=== PATIENT | male | born 2000 | race African-American/Black ===

== ENCOUNTER 2021-07-08 18:06 | Emergency (ER) | payer SELFPAY ==
[2021-07-08 18:30] VITALS: BP 129/102; PULSE 81; RESP 16; TEMP 37.1; O2SAT 100
--- NOTE | 2021-07-08 20:53 | ED.GENADULT ---
HPI - General Adult General Chief complaint: Urogenital-Male Stated complaint: penile discharge Time Seen by Provider: 07/08/21 20:46 Source: patient Mode of arrival: ambulatory Limitations: no limitations History of Present Illness HPI narrative: Patient presents for evaluation of urethral discharge for the last 1 to 2 days. He states that it is a milky white color and he has associated dysuria. He denies any testicular pain or swelling. He denies any fever, chills, nausea, vomiting, abdominal pain, sore throat, rectal pain. He is currently in a relationship with a male with whom he is sexually active. He believes he contracted an STD prior to the time that he was sexually active with his current partner. Patient does engage in insertive and receptive anal intercourse as well as oral intercourse. Review of Systems Review of Systems: CONSTITUTIONAL: Denies fever, chills, or sweats. EYES: Denies visual changes, redness, or discharge. ENT: Denies rhinorrhea, congestion, sore throat, or otalgia. CARDIOVASCULAR: Denies chest pain, palpitations, or edema. RESPIRATORY: Denies cough or dyspnea. GASTROINTESTINAL: Denies abdominal pain, nausea, vomiting, or diarrhea. GENITOURINARY: Reports urethral discharge and dysuria. Denies testicular pain and swelling. SKIN: Denies rash or itching. MUSCULOSKELETAL: Denies back pain, joint pain, or myalgia. NEUROLOGIC: Denies headache, numbness, dizziness, or weakness. PSYCHIATRIC: Denies anxiety or depression. [facility] Past Medical History Medical History (Updated 07/08/21 @ 20:57 by Aldo Abreu, JIM, ) No pertinent past medical history Surgical History Surgical History No pertinent past surgical history Family History Family History Mother No pertinent past medical history Social History Social History Smoking status: Never smoker Alcohol intake: current Alcohol use details: Socially Substance use: never Gender identity (if verbalized by the patient): Male Sexual Orientation (if Verbalized by the Patient): Lesbian, Stein, or Homosexual Spiritual care concerns: No Exam Narrative: GENERAL: Well-appearing, well-nourished, and in no acute distress. HEAD: Normocephalic, atraumatic. EYES: PERRLA and EOMI. ENT: Nares clear, no rhinorrhea or epistaxis. Mucous membranes moist. Oropharynx without tonsillar hypertrophy exudate or other lesions. Bilateral TMs pearly montes nonbulging NECK: Supple. No adenopathy or masses. No carotid bruits or JVD CHEST: Clear to auscultation. No respiratory distress. No wheezes rales or rhonchi HEART: Regular rate and rhythm. No murmur heard. Normal peripheral pulses. ABDOMEN: Soft, nontender, nondistended, normal active bowel sounds. GENITAL: No external genital lesions. No inguinal lymphadenopathy. No scrotal swelling. No testicular masses or tenderness. There is a milky white discharge noted at urethral orifice. EXTREMITIES: Normal range of motion. No edema. SKIN: Warm, dry, no rash. NEURO: No focal deficits. Alert and oriented x3. PSYCH: Normal mood and affect. Course Course Emergency Course: This is a 20-year-old male who presented with complaints of urethral discharge and dysuria. On physical exam he does have milky white drainage noted. Patient was treated empirically for gonorrhea and chlamydia. He was advised to have complaints of STD evaluation performed outpatient. He was advised on safer sex practices. He should follow-up outpatient for further evaluation treatment return for worsening symptoms. Patient agreed with plan of care. Vital Signs Vital signs: Vital Signs Temperature 37.1 C 07/08/21 18:30 Pulse Rate 81 07/08/21 18:30 Respiratory Rate 16 07/08/21 18:30 Blood Pressure 129/102 H 07/08/21 18:30 Pulse Oximetry 100 07/08
[2021-07-08 21:08] VITALS: BP 161/88; PULSE 74; RESP 20; O2SAT 100
[2021-07-08] MEDS: cefTRIAXone 1 GM VIAL 0.5 GM IM (21:10)
[2021-07-08] MEDS: AZITHROMYCIN 250 MG TABLET 1000 MG PO (21:10)
[2021-07-08 21:51] LABS: Add Urine Microscopic? YES; Appearance Urine Clear (Clear); Bacteria Urine Trace /hpf; Bilirubin Urine Negative (Negative); Blood Urine Negative (Negative); Budding Yeast Urine Present /hpf; Color Urine Yellow (Yellow); Glucose Urine UA Negative (Negative); Ketones Urine Negative (Negative); Leukocyte Esterase Ur 3+ LEU/UL (Negative); Mucus Urine Rare /lpf; Nitrate Urine Negative (Negative); Protein Urine Negative (Negative); Specific Grav Ur 1.012 (1.001-1.035); Urobilinogen Urine Negative mg/dL (<2.0); WBC Urine >75 /hpf
== END 2021-07-08 21:45 | disposition home or self-care (01) ==
LOC: ANHED 21:13
PROVIDERS: Emergency Provider Nurse Practitioner
DX: Z20.2 Contact with and (suspected) exposure to infections with a predominantly sexual mode of transmission (principal)
CPT/HCPCS: 81001; 87086; 87491; 87591; 87661; 96372; 99283; A9270; J0696

== ENCOUNTER 2025-03-21 16:35 | Emergency (ER) | payer OTHER, SELFPAY ==
[2025-03-21 16:46] VITALS: BP 136/90; PULSE 66; RESP 16; TEMP 36.2; O2SAT 99
--- NOTE | 2025-03-21 16:48 | ED.DENTAL ---
HPI - Dental/Oral General Chief complaint: Dental/Oral Stated complaint: tooth pain Source: patient Mode of arrival: ambulatory Limitations: no limitations History of Present Illness HPI Narrative: Patient is a pleasant 24-year-old male presenting with complaint of left lower dental pain. Additional symptoms reported include left-sided facial swelling. Symptoms began approximately 1 week ago, became worse today. No treatment initiated prior to arrival. No additional complaints. Teeth map:  1. TTP Related Data Home Medications ?Medication ?Instructions ?Recorded ?Confirmed ?Last Taken ?Type bictegravir 50 mg-emtricitabine tablet PO 03/21/25 Unknown History 200 mg-tenofovir alafenam 25 mg tablet (Biktarvy) Allergies Allergy/AdvReac Type Severity Reaction Status Date / Time shellfish derived Allergy Swelling Verified 03/21/25 16:58 Review of Systems Review of Systems: All systems reviewed & are unremarkable except as noted in HPI and below PMFSH Past Medical History Medical History (Updated 03/21/25 @ 16:57 by Alin Huynh, [employer]) No pertinent past medical history Surgical History Surgical History No pertinent past surgical history Family History Family History Mother No pertinent past medical history Social History Social History Smoking status: Never smoker Alcohol intake: current Alcohol use details: Socially Substance use: never Gender identity (if verbalized by the patient): Male Sexual Orientation (if Verbalized by the Patient): Lesbian, Stein, or Homosexual Spiritual care concerns: No Exam Narrative: GENERAL: Well-appearing, well-nourished, and in no acute distress. HEAD: Normocephalic, atraumatic. EYES: EOMI. No redness or drainage. Conjunctivae normal. ENT: Mucous membranes pink and moist. Nares clear. No rhinorrhea. TMs normal bilaterally. Throat normal. Uvula midline. No trismus. No evidence of Hernandez angina. NECK: Normal AROM. Supple. No lymphadenopathy. CHEST: No respiratory distress. HEART: Regular rate MUSCULOSKELETAL: No bony tenderness. EXTREMITIES: Normal range of motion. No edema. SKIN: Warm, dry, no rash. Capillary refill normal. Normal skin turgor. NEURO: No focal deficits. Alert and oriented x3. Gait steady. PSYCH: Normal affect. No signs of depression or anxiety. HENMT: Teeth and gingiva: abnormal tooth and associated gingiva (TTP, carious tooth #17) Throat: posterior oropharynx normal and uvula midline Course Course Level of Care: Express Care Visit Vital Signs Vital signs: Vital Signs Temperature 97.1 F L 03/21/25 16:46 Pulse Rate 66 03/21/25 16:46 Respiratory Rate 16 03/21/25 16:46 Blood Pressure 136/90 03/21/25 16:46 Pulse Oximetry 99 03/21/25 16:46 Oxygen Delivery Room Air 03/21/25 16:46 Temperature 97.1 F L 03/21/25 16:46 Pulse Rate 66 03/21/25 16:46 Respiratory Rate 16 03/21/25 16:46 Blood Pressure 136/90 03/21/25 16:46 Pulse Oximetry 99 03/21/25 16:46 Oxygen Delivery Room Air 03/21/25 16:46 MDM - Dental/Oral Differential Diagnosis Differential diagnosis: Likely gingival abscess, dental caries, toothache, dental abscess, fracture of tooth and aphthous ulcer Medical Records Attestation: I reviewed the patient's medical records. Discharge Plan Discharge Clinical Impression: Toothache, Dental caries Patient Disposition: Home Condition: Stable Instructions: Antibiotic Form Additional Instructions: Go straight to ER should your symptoms become worse or should any new symptoms develop Patient Language: Lithuanian Prescriptions: New clindamycin HCl [Cleocin HCl] 150 mg capsule 150 mg PO Q8H Qty: 90 0RF ibuprofen 600 mg tablet 600 mg PO TID Qty: 30 0RF No Action Biktarvy 50-200-25 mg tablet PO Follow-up/Referrals: Alejo,Cristine [Other] - 03/22/25 Stand Alone Forms: Work/School Release IP
== END 2025-03-21 17:08 | disposition home or self-care (01) ==
PROVIDERS: Emergency Provider Registered Nurse
DX: K02.9 Dental caries, unspecified (principal)
CPT/HCPCS: 99213; G0463

== ENCOUNTER 2025-08-28 10:07 | Outpatient (CLI) | payer OTHER, SELFPAY ==
--- NOTE | ~2025-08-28 | XR_ITS ---
EXAM/PROCEDURE: XR scoliosis survey HISTORY: Scoliosis COMPARISON: None available. TECHNIQUE: Scoliotic survey films provided FINDINGS: Approximately 35 degrees of dextro scoliotic curvature of the lower thoracic spine as measured along the inferior endplate of T6 and inferior endplate of T11. Approximately 10 degrees of compensatory levo rotatory curvature of the lower lumbar spine as measured by along the superior endplate of L3 and inferior endplate of L4. No clearly identified segmentation anomaly identified. No gross acute or aggressive bone or soft tissue process seen. IMPRESSION: Sigmoidal scoliotic curvature of the thoracolumbar spine with the predominant curvature been approximately 35 degrees of dextroscoliosis in the lower thoracic spine and 10 degrees of compensatory levoscoliotic curvature of the lumbar spine. Reviewed, dictated and finalized at location A. TIATIONS DIRECTOR IMPRESSION: Sigmoidal scoliotic curvature of the thoracolumbar spine with the p redominant curvature been approximately 35 degrees of dextroscoliosis in the lo wer thoracic spine and 10 degrees of compensatory levoscoliotic curvature of th e lumbar spine.
== END 2025-08-28 10:08 | disposition home or self-care (01) ==
PROVIDERS: PCP Internal Medicine; Visit Provider Internal Medicine
DX: M41.9 Scoliosis, unspecified (principal)
CPT/HCPCS: 72082